=== PATIENT | female | born 1980 | race Two or more races ===

== ENCOUNTER → 2017-11-21 | Outpatient (CLI) | payer OTHER | END | disposition home or self-care (01) | LOC: RAD 12:13 | DX: M54.42 Lumbago with sciatica, left side (principal); M62.838 Other muscle spasm | CPT/HCPCS: 72100 ==

== ENCOUNTER → 2018-05-20 | Outpatient (CLI) | payer OTHER | END | disposition home or self-care (01) | LOC: KCIC US 10:48 | DX: D25.9 Leiomyoma of uterus, unspecified (principal); I10 Essential (primary) hypertension | CPT/HCPCS: 76856 ==

== ENCOUNTER → 2019-03-09 | Outpatient (CLI) | payer OTHER ==
[2015-06-21 23:00] VITALS: BP 179/108
--- NOTE | 2019-03-09 17:03 | KCIC ---
PELVIS W/TV History: Fibroid, pelvic pain Comparison: 01/05/2014 Findings: Multiple transabdominal sonographic images of pelvis are submitted. Pelvic structures are poorly delineated. Transvaginal ultrasound: Multiple transvaginal sonographic images of pelvis are submitted. There is minimal free fluid in the cul-de-sac. There is a complex nabothian cyst about 1.5 cm greatest dimension, no internal vascularity on color Doppler imaging. There is another focus of hypoechogenicity in region of the cervix about 1.3 cm x 0.7 x 1.9 cm, some internal echoes present. There is a posterior uterine mass in the myometrium about 2.4 x 1.4 x 2.3 cm. Endometrium measures about 1 cm in thickness. There is a small hypoechoic lesion in the endometrial cavity about 0.6 x 0.2 x 0.3 centimeter, not associated with significant hypervascularity Right ovary measured 4 x 2.1 x 2 cm. Left ovary measured 3.3 x 1.8 x 2.9 cm. There is normal low resistance vascularity of the ovaries bilaterally. Impression: 1. There are 2 separate hypoechoic foci of the cervix with internal echoes, may be sequela of complex nabothian cysts, one of which appears more collapsed. There is a small nonspecific likely cystic focus of the endometrium. There is a posterior uterine mass, more likely a fibroid. There is minimal nonspecific free fluid in the pelvis. Electronically signed by: Jose R Benites MD (03/09/2019 5:00 PM) [id number]
== END | disposition home or self-care (01) ==
LOC: KCIC US 14:56
PROVIDERS: ATTEND Physician Assistant Medical
DX: N88.8 Other specified noninflammatory disorders of cervix uteri (principal)
CPT/HCPCS: 76830; 76856